=== PATIENT | male | born 1980 | race Caucasian/White ===

== ENCOUNTER 2017-08-11 20:52 | Emergency (ER) | payer SELFPAY ==
[2017-08-11 21:05] VITALS: TEMP 98.1
[2017-08-11] MEDS ORDERED: LORazepam 2 MG/ML INJ IM ONE (21:05)
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
[2017-08-11] MEDS ORDERED: HALOPERIDOL LACT 5 MG/ML INJ IM ONE (21:26)
[2017-08-11] MEDS ORDERED: LET GEL TOPICAL 1 EA SYR TP ONE (21:39)
[2017-08-11 23:55] VITALS: BP 109/86; PULSE 87; RESP 16; O2SAT 95
== END 2017-08-11 23:50 | disposition home or self-care (01) ==
PROC: 0HQ0XZZ Repair Scalp Skin, External Approach (ICD-10-PCS; principal; 2017-08-11)
PROC: 0HQ1XZZ Repair Face Skin, External Approach (ICD-10-PCS; principal; 2017-08-11)
DX: S02.2XXA Fracture of nasal bones, initial encounter for closed fracture (principal); S01.81XA Laceration without foreign body of other part of head, initial encounter; S01.01XA Laceration without foreign body of scalp, initial encounter; V18.0XXA Pedal cycle driver injured in noncollision transport accident in nontraffic accident, initial encounter; Y92.410 Unspecified street and highway as the place of occurrence of the external cause; Y99.8 Other external cause status; Y93.55 Activity, bike riding; Z23 Encounter for immunization
CPT/HCPCS: J2060

== ENCOUNTER 2017-09-03 21:25 | Emergency (ER) | payer SELFPAY ==
[2017-09-03 21:33] VITALS: TEMP 98.1
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
[2017-09-03 23:25] VITALS: BP 128/87; PULSE 75; RESP 18; O2SAT 97
== END 2017-09-03 23:25 | disposition home or self-care (01) ==
LOC: EDUNIT#
DX: S62.625A Displaced fracture of middle phalanx of left ring finger, initial encounter for closed fracture (principal); X58.XXXA Exposure to other specified factors, initial encounter

== ENCOUNTER 2018-01-14 14:59 | Inpatient (IN) | payer SELFPAY ==
[2018-01-14] MEDS ORDERED: NS 1,000 ML IV ONE (15:57)
[2018-01-14] MEDS ORDERED: KETOROLAC 30 MG/1 ML SDV IVP ONE (15:58)
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
[2018-01-14] MEDS ORDERED: AMOXICILLIN/CLAVULANATE POT 875/125 MG TAB PO ONE (16:04)
[2018-01-14 16:13] LABS: PLATELET COUNT 359 10^3/uL (150-400)
[2018-01-14] MEDS ORDERED: ONDANSETRON DISINTEGRATING 4 MG TAB PO PRN (17:03)
[2018-01-14] MEDS ORDERED: diphenhydrAMINE 25 MG CAP PO PRN (17:03)
[2018-01-14] MEDS ORDERED: ONDANSETRON 4 MG/2 ML VIAL IVP PRN (17:03)
[2018-01-14] MEDS ORDERED: PROMETHAZINE HCL 25 MG/ML INJ IVP PRN (17:03)
[2018-01-14] MEDS ORDERED: ACETAMINOPHEN 325 MG TAB PO PRN (17:03)
[2018-01-14] MEDS ORDERED: PROMETHAZINE HCL 25 MG TAB PO PRN (17:03)
[2018-01-14] MEDS ORDERED: NICOTINE POLACRILEX 2 MG GUM B PRN (17:03)
[2018-01-14] MEDS ORDERED: LR 1,000 ML IV SCH (17:30)
[2018-01-14] MEDS ORDERED: BENZONATATE 100 MG CAP PO PRN (17:37)
[2018-01-14] MEDS ORDERED: GUAIFENESIN/DM 10 ML UDCUP PO PRN (17:37)
[2018-01-14] MEDS ORDERED: IOPAMIDOL (ISOVUE-300) 100 ML BTL ONE (17:42)
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
[2018-01-14] MEDS: guaiFENesin 600 MG TAB.ER PO SCH (20:21)
[2018-01-14] MEDS: CETIRIZINE 10 MG TAB PO SCH (20:21)
[2018-01-14] MEDS: OSELTAMIVIR PHOSPHATE 75 MG CAP PO SCH (20:21)
[2018-01-14] MEDS: NICOTINE 21 MG/24 HR PATCH TD SCH (20:21)
[2018-01-14] MEDS: IBUPROFEN 200 MG TAB PO PRN (20:29)
[2018-01-14] MEDS: AZITHROMYCIN IV 500 MG in NS 250 ML IV SCH (20:48)
[2018-01-14] MEDS: IPRATROPIUM/ALBUTEROL 3 ML DEYVIAL IH SCH ×2 (21:15→21:16)
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
[2018-01-15 05:47] LABS: PLATELET COUNT 378 10^3/uL (150-400)
[2018-01-15] MEDS ORDERED: AMOXICILLIN/CLAVULANATE POT 875/125 MG TAB PO SCH (06:00)
[2018-01-15] MEDS: IPRATROPIUM/ALBUTEROL 3 ML DEYVIAL IH SCH ×4 (06:04→21:52)
[2018-01-15] MEDS ORDERED: cefTRIAXone 1 GM in STERILE WATER INJ 10 ML IV SCH (09:00)
[2018-01-15] MEDS: AZITHROMYCIN IV 500 MG in NS 250 ML IV SCH (09:14)
[2018-01-15] MEDS: guaiFENesin 600 MG TAB.ER PO SCH ×2 (09:18→20:25)
[2018-01-15] MEDS: OSELTAMIVIR PHOSPHATE 75 MG CAP PO SCH ×2 (09:18→17:41)
[2018-01-15] MEDS: NICOTINE 21 MG/24 HR PATCH TD SCH (09:21)
[2018-01-15] MEDS ORDERED: TUBERCULIN (PPD) 5 TU/0.1 ML SYRINGE ID ONE (09:45)
--- NOTE | 2018-01-15 09:52 | GCON ---
[f rep st] CONSULTATION INFECTIOUS DISEASE CONSULT DATE OF CONSULTATION: 01/15/2018 REQUESTING PHYSICIAN: Dr. Evin Burt. REASON FOR CONSULT: To assist in the management of this 37-year-old homeless man admitted for pneumonia, influenza A, and right otitis media. HISTORY OF PRESENT ILLNESS: The patient is a 37-year-old male whose previous medical history is notable for the followin. Homelessness for the past 9 months. 2. Tobacco use disorder. 3. Substance abuse with intravenous crystal methamphetamine. Please note, the patient was somewhat irritable this morning and did not want to provide a complete history for me. Insofar as his present issues are concerned, the patient tells me that he has been homeless for the past 9 months. He moved here several months ago from [place], [place]. He states that he worked on [employer] there, and then lost his job and became homeless. He has been sleeping out on the street, and occasionally in a parking structure when it is cold. He has not been at the [facility]. 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 He adamantly denies that. He states that he has been injecting crystal methamphetamine several times per day for the past couple of years and has never been in a rehabilitation program. He states that he gets clean needles from friends who have been at the [facility]. He has never been told he has hepatitis C. His last HIV test was 5 years ago when he was in care home. He states that last week he had fairly sudden onset of a cough, headache and body aches. He then developed discomfort in his right ear that became significant, so he presented to [facility] emergency department yesterday. In the emergency room, his white cell count was elevated at 11,000. He, however, was afebrile. Testing for influenza returned positive for influenza A. Chest x-ray revealed a lingular pneumonia, and for unclear reasons a CT chest was performed. Because of these test results, the patient was admitted to [facility] for further evaluation and treatment. He was started on Tamiflu, and ceftriaxone and azithromycin. He was also given 1 dose of Augmentin in the emergency room. I am now asked to assist in his management. I reviewed this with Dr. Frias this morning. The patient has an obvious lingular pneumonia, and patchy infiltrates throughout with slight nodular appearance. Because this was read as possibly representing underlying endocarditis or septic emboli, the patient is in the process of getting a transthoracic echocardiogram presently. He denies any history of endocarditis or endovascular disease. He denies any history of MRSA. He did not get a flu vaccine this year and does not recall ever having a pneumonia vaccine. He denies any recent travel other than to [place]. He does not have any pets. He has sex only with women. Please see discussion below. REVIEW OF SYSTEMS: Notable for some mild ear pain (better since admission), history of fever, chills, body aches, and cough productive of some yellow sputum. He denies diarrhea, rash, burning with urination or other. PREVIOUS MEDICAL HISTORY: As outlined below. ALLERGIES: No known drug allergies. MEDICATIONS: Prior to admission, none. SOCIAL HISTORY: The patient is originally from [place] and recently moved here because "I like [place]." He has a history of marijuana use and intravenous crystal methamphetamine use and denies needle sharing. He tells me regarding substances, "I have tried it all." No history of hepatitis C or tuberculosis. The patient spent time in care home in [place]. Has sex only with women as outlined above. He denies any history of sexually transmitted infections. Last HIV test was in care home, which was negative. His last TB test was at that time as well. FAMILY HISTORY: Mother is alive and well in [place]. He does not have contact with her. He has siblings with whom he is not in contact either. Review of systems as outline above. Otherwise, 10 systems are reviewed and are negative. PHYSICAL EXAM: VITAL SIGNS: T-current 36.5, T-max 36.8, heart rate 80, blood pressure 111/62, 95% on room air. GENERAL: Cachectic male, disheveled, somewhat irritable, nontoxic appearing. Coughing during my exam. HEENT: Atraumatic, normocephalic. Pupils equal, round, reactive to light. Extraocular movements are intact. No conjunctival injection, icterus, or petechiae. Mucous membranes are moist. Dentition in poor repair. No obvious thrush or oral lesions noted. Left tympanic membrane is normal. Right tympanic membrane is erythematous, but not beet-red. It is not bulging. There is no tongue tenderness. There is no evidence of tympanic membrane perforation. There are no vesicles. No anterior or posterior cervical adenopathy. NECK: Trachea is midline. No thyromegaly or palpable thyroid nodule. RESPIRATORY: No increased respiratory effort. Coarse breath sounds throughout with rhonchi. CARDIOVASCULAR: S1, S2. I cannot appreciate any rubs , gallops, or murmurs. ABDOMEN: Scaphoid, soft, no organomegaly or tenderness to palpation. EXTREMITIES: No clubbing, cyanosis, or edema. SKIN: Warm and dry. No stigmata of endocarditis. Old tattoos. His fingers are coated in dirt. No evidence of cutaneous abscesses. I cannot appreciate any track zambrano in his anterior cubital fossae, which is where the patient injects. NEUROLOGIC : He is alert and oriented x3. LABORATORY DATA: Microbiologic data: Blood cultures x2 are pending. Urine Legionella antigen is pending. White blood cell count of 8, down from 11. Hematocrit 42, platelet count of 378. BUN and creatinine 12/0.6. AST and ALT are within normal limits. Alkaline phosphatase normal. Albumin of 3. Influenza A swab positive. Urine tox screen positive for amphetamines and THC. Radiographic data as outlined above. IMPRESSION: 37-year-old homeless male with substance use disorder, homelessness and tobacco use disorder, admitted with influenza A and multifocal pneumonia. The patchy infiltrates could be secondary to an influenza pneumonia, or a secondary bacterial process. There are no cavitary lesions on CT scan; clinical suspicion for tuberculosis is low presently. PLAN: 1. Patient agrees to an HIV antibody test. 2. Obtain serologies for hepatitis A, B and C, and vaccinate for hepatitis A and B if not protected immunologically. 3. Blood cultures have been sent and are pending. 4. Agree with Tamiflu for treatment of influenza, and Ceftriaxone and Azithromycin for empiric treatment of multilobar bacterial pneumonia. MRSA pneumonia seems unlikely. 5. Urine Legionella antigen is pending. 6. A transthoracic echocardiogram has been ordered for completeness' sake given patchy infiltrates and concern for septic emboli. 7. Plant PPD, although as per above, clinical suspicion for tuberculosis is low and I do not feel he needs isolation at this point in time. 8. Will assess whether the patient has had a Tdap prior to discharge. He will also need Pneumovax. 9. Obtain sputum for Gram stain and culture. Thank you very much for consulting Infectious Diseases. Will continue to follow this patient with you. /[id number]/MODL MTDD
[2018-01-15] MEDS: cefTRIAXone 2 GM in STERILE WATER INJ 20 ML IV SCH (11:14)
--- NOTE | 2018-01-15 11:54 | ECHO ---
[email or web address] [address] [address] Main: [phone] Fax: Transthoracic Echocardiogram Name: JEREMY PISNAO MR#: [id number] Study Date: 01/15/2018 Study Time: 08:40 AM Date of : 1980 Age: 37 year(s) Height: 175.3 cm (69 in.) Weight: 61.24 kg (135 lb.) BSA: 1.75 m2 Gender: Male Examination: Echo Indication: eval for endocarditis; h/o IVDU Image Quality: Adequate Contrast: Requested by: Evin Burt BP: 111 mmHg/62 mmHg Heart Rate: 86 bpm Rhythm: Normal sinus rhythm Indication: eval for endocarditis; h/o IVDU Procedure Staff Contact Clerk: Tiffany Landry [facility] Reading Physician: Lukasz Oneill Requesting Provider: Conclusions: 1)Normal LV size and systolic function with a LVEF of 57% and normal wall motions. 2)Mild MR without MV prolapse. 3)Trivial TR noted. Unable to accurately assess PA pressures. 4)No vegetations on cardiac valves seen. 5)No pericardial effusion. Measurements: Chambers Valvular Assessment AV/MV Valvular Assessment TV/PV Normal Normal Normal Name Value Range Name Value Range Name Value Range Ao Dorys (MM): 3.0 cm (2.2 cm-3.7 AV Vmax: 1.10 m/s (1 m/s-1.7 PV Vmax: 0.80 m/s (0.6 m/s-0.9 cm) m/s) m/s) IVSd (2D): 0.8 cm (0.6 cm-1.1 AV maxP mmHg ( - ) PV PGmax: 3 mmHg ( - ) cm) LVOT Vmax: 0.82 m/s (0.7 m/s-1.1 LVDd (2D): 4.9 cm (4.2 cm-5.9 m/s) cm) MV E Vmax: 0.55 m/s ( - ) LVDs (2D): 3.2 cm (2.1 cm-4 MV A Vmax: 0.56 m/s ( - ) cm) MV E/A: 0.98 ( - ) LVPWd (2D): 0.9 cm (0.6 cm-1 cm) LVEF (BP): 57 % (>=55 %) RVDd(2D): 2.8 cm (1.9 cm-3.8 cmmm) Continued Measurements: Chambers Valvular Assessment AV/MV Name Value Name Value LADs Lon.2 cm MV DecTime: 113 m/s LA Area: 12.0 cm2 MV E/E' Septal: 8.00 Patient: JEREMY PISANO Study Date: 01/15/2018 Page 1 of 2 08:40 AM LA Volume: 27 ml MV E/E' Lateral: 4.50 LA Volume Index: 15.4 ml/m2 RA Area: 9.0 cm2 Findings: Left Ventricle: Normal size left ventricle. No LV hypertrophy. Normal global systolic LV function. EF is 57 %. No regional wall motion abnormality. Normal diastolic LV function. Right Ventricle: Normal size right ventricle. Normal RV function. Left Atrium: The left atrium is normal in size. Right Atrium: The right atrium is normal in size. Mitral Valve: The mitral valve is normal in appearance and function. There is mild thickening of the mitral valve leaflets. No mitral stenosis is present. Mild mitral valve regurgitation is present. There is no mitral valve vegetation. Aortic Valve: The aortic valve is normal in appearance and function. There is no aortic valve regurgitation. No aortic valve stenosis is present. There is no aortic valve vegetation. Tricuspid Valve: The tricuspid valve is normal in appearance and function. Trivial tricuspid valve regurgitation. No tricuspid valve vegetation. Pulmonic Valve: The pulmonic valve is normal in appearance and function. There is no pulmonic regurgitation seen. Aorta: The aorta is normal. Normal size aortic root measuring 3.0 cm. Pericardium: No pericardial effusion. (No Signature Object) Patient: JEREMY PISANO Study Date: 01/15/2018 Page 2 of 2 08:40 AM [id number]
--- NOTE | 2018-01-15 16:07 | HOSPPROG ---
Hospitalist Progress Note Assessment/Plan: #Multilobar PNA (personally reviewed CT scan) -appreciate ID consultation -Pending: Legionella, Strep, HIV, PPD, Hep serologies -IV CTX, Azithro -Echo with no vegetations #Influenza A: Tamiflu #Polysubstance abuse: meth, THC. Counseled on cessation #Nicotine abuse: yazmin patch #Homelessness: CM to assist once stable for DC #Mild leukocytosis: improve #right ear pain: no e/o acute OM #Diet: regular #DVT ppx: Lovenox #Disp: warrants inpt admission for acute PNA, requires IV abx Subjective: "feel so tired" Coughing up some sputum Objective: Vital Signs Temp Pulse Resp BP Pulse Ox 36.7 C 110 H 18 115/72 98 01/15/18 15:40 01/15/18 15:40 01/15/18 15:40 01/15/18 15:40 01/15/18 15:40 Laboratory Results 01/15/18 05:34 01/15/18 05:34 01/14/18 01/15/18 01/16/18 05:59 05:59 05:59 Intake Total 100 Output Total 100 Balance 0 - Physical Exam Constitutional: unkempt Eyes: other (no conjunctival hemorrhages) Ears, Nose, Mouth, Throat: dry mucous membranes Cardiovascular: regular rate and rhythym, no murmur, rub, or gallop Respiratory: rhonchi Genitourinary: no bladder fullness Skin: warm, other (tatooed) Musculoskeletal: full muscle strength Neurologic: AAOx3, CN II-XII Intact Psychiatric: flat affect ICD10 Worksheet Patient Problems: Problems Problem Status Onset Influenza A Acute Left lower lobe pneumonia Acute Otitis media Acute Laceration of right side of jaw Acute Laceration of scalp Acute Nasal bones, closed fracture Acute
--- NOTE | 2018-01-15 17:13 | ASMTCMCOM ---
CM Note CM Note Notes: Pt is homeless, here w/pneumonia, getting IV abx. Pt has a hx of drug use, will likely dc to community when medically stable, CM to speak w/pt about senior living bed. DC Plan: TBD Date Signed: 01/15/2018 05:13 PM Electronically Signed By:Renae Jacobo RN
[2018-01-15] MEDS: CETIRIZINE 10 MG TAB PO SCH (20:25)
[2018-01-15] MEDS: IBUPROFEN 200 MG TAB PO PRN (20:25)
[2018-01-16] MEDS: IPRATROPIUM/ALBUTEROL 3 ML DEYVIAL IH SCH ×4 (06:13→21:19)
[2018-01-16] MEDS: cefTRIAXone 2 GM in STERILE WATER INJ 20 ML IV SCH (07:55)
[2018-01-16] MEDS: AZITHROMYCIN IV 500 MG in NS 250 ML IV SCH (07:59)
[2018-01-16] MEDS: OSELTAMIVIR PHOSPHATE 75 MG CAP PO SCH ×2 (08:03→17:53)
[2018-01-16] MEDS: guaiFENesin 600 MG TAB.ER PO SCH ×2 (08:05→19:35)
[2018-01-16] MEDS: NICOTINE 21 MG/24 HR PATCH TD SCH (08:05)
[2018-01-16] MEDS ORDERED: PNEUMOCOCCAL 0.5ML VACCINE VIAL IM ONE ×2 (08:17→11:00)
--- NOTE | 2018-01-16 08:17 | PCMIDPN ---
Assessment/Plan: 1. Influenza a with possible superimposed bacterial multilobar pneumonia: Continue Tamiflu, ceftriaxone and azithromycin. When ready for discharge, can be transitioned to oral fluoroquinolone to complete 5 days of therapy. Echocardiogram negative. Clinical suspicion for septic emboli/endocarditis is low. 2. Vaccines: Patient states his last Tdap was within the past 10 years. Has never received Pneumovax. Will administer today. Subjective: Starting to feel better. Still coughing a fair amount. Objective: Tamiflu 75 mg twice a day day 2/5 Azithromycin 500 daily day 2 Ceftriaxone 2 g IV daily day 2 Afebrile 96% on room air Vital Signs Temp Pulse Resp BP Pulse Ox 36.6 C 93 18 103/70 96 01/16/18 07:46 01/16/18 07:46 01/16/18 07:46 01/16/18 07:46 01/16/18 07:46 Laboratory Results 01/15/18 05:34 01/15/18 16:39 01/15/18 01/16/18 01/17/18 05:59 05:59 05:59 Intake Total 100 Output Total 100 1300 Balance 0 -1300 Blood cultures negative Hepatitis serologies pending - Physical Exam General Appearance: no apparent distress, cachetic EENT: pharynx normal, No thrush Respiratory: other (Diminished breath sounds with crackles right base otherwise clear) Abdomen: non-tender, soft Skin: No rash ICD10 Worksheet Patient Problems: Problems Problem Status Onset Influenza A Acute Left lower lobe pneumonia Acute Otitis media Acute Laceration of right side of jaw Acute Laceration of scalp Acute Nasal bones, closed fracture Acute
--- NOTE | 2018-01-16 14:54 | HOSPPROG ---
Hospitalist Progress Note Assessment/Plan: #Multilobar PNA (personally reviewed CT scan) -appreciate ID consultation -Pending: Legionella, Strep, HIV, PPD, Hep serologies -IV CTX, Azithro -Echo with no vegetations #Influenza A: Tamiflu #Polysubstance abuse: meth, THC. Counseled on cessation #Nicotine abuse: yazmin patch #Homelessness: CM to assist once stable for DC #Mild leukocytosis: improve #right ear pain: no e/o acute OM #Diet: regular #DVT ppx: Lovenox #Disp: warrants inpt admission for acute PNA, requires IV abx Subjective: less cough. still tired. Eating ok without N/V Objective: Vital Signs Temp Pulse Resp BP Pulse Ox 36.1 C 96 14 131/67 H 92 01/16/18 10:59 01/16/18 10:59 01/16/18 10:59 01/16/18 10:59 01/16/18 10:59 Laboratory Results 01/15/18 05:34 01/15/18 16:39 01/15/18 01/16/18 01/17/18 05:59 05:59 05:59 Intake Total 100 Output Total 100 1300 Balance 0 -1300 - Physical Exam Constitutional: no apparent distress, unkempt Eyes: PERRL Ears, Nose, Mouth, Throat: dry mucous membranes Cardiovascular: regular rate and rhythym Respiratory: rhonchi Gastrointestinal: normoactive bowel sounds, soft, non-tender abdomen Genitourinary: no bladder fullness Skin: warm Musculoskeletal: full muscle strength Neurologic: AAOx3, CN II-XII Intact Psychiatric: interacting appropriately, flat affect ICD10 Worksheet Patient Problems: Problems Problem Status Onset Influenza A Acute Left lower lobe pneumonia Acute Otitis media Acute Laceration of right side of jaw Acute Laceration of scalp Acute Nasal bones, closed fracture Acute
[2018-01-16] MEDS: CETIRIZINE 10 MG TAB PO SCH (19:35)
[2018-01-17 02:49] LABS: HEPATITIS B SURFACE ANTIGEN NEGATIVE (NEGATIVE)
[2018-01-17 02:55] LABS: HEPATITIS B CORE AB IGM NEGATIVE (NEGATIVE)
[2018-01-17 03:07] LABS: HEPATITIS A ANTIBODY TOTAL POSITIVE (NEGATIVE); HEPATITIS B CORE AB TOTAL NEGATIVE (NEGATIVE); HEPATITIS C ANTIBODY TOTAL NEGATIVE (NEGATIVE); HIV TYPE 1 AND 2 NEGATIVE (NEGATIVE)
[2018-01-17 03:51] LABS: HEPATITIS A ANTIBODY IGM (BCH) NEGATIVE (NEGATIVE)
[2018-01-17] MEDS: IPRATROPIUM/ALBUTEROL 3 ML DEYVIAL IH SCH ×4 (05:59→20:23)
--- NOTE | 2018-01-17 08:30 | HOSPPROG ---
Hospitalist Progress Note Assessment/Plan: #Multilobar PNA (personally reviewed CT scan) -symptoms improved. Appreciate ID consultation -Pending: Legionella, Strep, HIV, PPD, Hep serologies -Echo with no vegetations -change to PO LQ for total 7 days abx #Influenza A: Tamiflu #Polysubstance abuse: meth, THC. Counseled on cessation #Nicotine abuse: yazmin patch #Homelessness: CM to assist once stable for DC #Mild leukocytosis: resolved #right ear pain: no e/o acute OM #Diet: regular #DVT ppx: Lovenox #Disp: warrants inpt admission for acute PNA. Plan to DC in next 1-2 days Subjective: minimal cough Objective: Vital Signs Temp Pulse Resp BP Pulse Ox 36.9 C 96 18 112/82 H 93 01/17/18 04:00 01/17/18 04:00 01/17/18 04:00 01/17/18 04:00 01/17/18 04:00 Laboratory Results 01/15/18 05:34 01/17/18 05:05 01/16/18 01/17/18 01/18/18 05:59 05:59 05:59 Intake Total 200 Output Total 1300 Balance -1300 200 - Physical Exam Constitutional: no apparent distress, unkempt Eyes: PERRL Ears, Nose, Mouth, Throat: moist mucous membranes Cardiovascular: regular rate and rhythym Respiratory: no respiratory distress (min rhonchi) Gastrointestinal: normoactive bowel sounds, soft, non-tender abdomen Genitourinary: no bladder fullness Skin: warm Musculoskeletal: full muscle strength Neurologic: AAOx3, CN II-XII Intact Psychiatric: interacting appropriately ICD10 Worksheet Patient Problems: Problems Problem Status Onset Influenza A Acute Left lower lobe pneumonia Acute Otitis media Acute Laceration of right side of jaw Acute Laceration of scalp Acute Nasal bones, closed fracture Acute
[2018-01-17] MEDS: guaiFENesin 600 MG TAB.ER PO SCH ×2 (09:29→20:35)
[2018-01-17] MEDS: NICOTINE 21 MG/24 HR PATCH TD SCH (09:29)
[2018-01-17] MEDS: OSELTAMIVIR PHOSPHATE 75 MG CAP PO SCH ×2 (09:29→17:25)
[2018-01-17] MEDS ORDERED: NS 1,000 ML IV SCH (09:30)
[2018-01-17] MEDS: AZITHROMYCIN IV 500 MG in NS 250 ML IV SCH (10:38)
[2018-01-17] MEDS: cefTRIAXone 2 GM in STERILE WATER INJ 20 ML IV SCH (10:39)
--- NOTE | 2018-01-17 16:31 | ASMTCMCOM ---
CM Note CM Note Notes: Chart reviewed. Attempted to meet with patient to assess his knowledge of available resources but he is asleep, Per his RN, he will not use services at the intermediate,likely to dc independently to the street. CM to follow. Plan: Independent Date Signed: 01/17/2018 04:31 PM Electronically Signed By:STANLEY Hooper
[2018-01-17] MEDS: CETIRIZINE 10 MG TAB PO SCH (20:39)
[2018-01-18] MEDS: IPRATROPIUM/ALBUTEROL 3 ML DEYVIAL IH SCH ×3 (05:41→16:20)
[2018-01-18] MEDS: guaiFENesin 600 MG TAB.ER PO SCH ×2 (08:51→21:16)
[2018-01-18] MEDS: OSELTAMIVIR PHOSPHATE 75 MG CAP PO SCH ×2 (08:52→18:24)
[2018-01-18] MEDS: NICOTINE 21 MG/24 HR PATCH TD SCH (08:53)
--- NOTE | 2018-01-18 13:37 | HOSPPROG ---
Hospitalist Progress Note Assessment/Plan: #Tachycardia: suspect deconditioning vs dehydration. No chest pain. Denies Etoh abuse and outside the window for w/d #Multilobar PNA (personally reviewed CT scan) -symptoms improved. Appreciate ID consultation -negative Strep, Legionella -Echo with no vegetations -change to PO LQ for total 7 days (Day 04/04) #Influenza A: Tamiflu to be done 01/19 #Polysubstance abuse: meth, THC. Counseled on cessation #Nicotine abuse: yazmin patch #Homelessness: CM to assist once stable for DC #Mild leukocytosis: resolved #right ear pain: no e/o acute OM #Diet: regular #DVT ppx: Lovenox #Disp: warrants inpt admission for acute PNA, IVfs. If tachycardia resolved, DC tomorrow to [facility] Subjective: feels much better. No SOB or chest pain Objective: Vital Signs Temp Pulse Resp BP Pulse Ox 36.4 C 120 H 16 115/83 H 98 01/18/18 08:00 01/18/18 11:38 01/18/18 08:00 01/18/18 08:00 01/18/18 11:38 Laboratory Results 01/15/18 05:34 01/17/18 05:05 01/17/18 01/18/18 01/19/18 05:59 05:59 05:59 Intake Total 200 4422 Output Total 3300 600 Balance 200 1122 -600 - Physical Exam Constitutional: other (appears much brighter, more color) Eyes: PERRL Ears, Nose, Mouth, Throat: moist mucous membranes Cardiovascular: regular rate and rhythym Respiratory: no respiratory distress, reduced air movement Gastrointestinal: normoactive bowel sounds, soft, non-tender abdomen Genitourinary: No ibanez in urethra Skin: warm Musculoskeletal: full muscle strength Neurologic: AAOx3 Psychiatric: interacting appropriately ICD10 Worksheet Patient Problems: Problems Problem Status Onset Influenza A Acute Left lower lobe pneumonia Acute Otitis media Acute Laceration of right side of jaw Acute Laceration of scalp Acute Nasal bones, closed fracture Acute
[2018-01-18] MEDS ORDERED: NS 1,000 ML IV SCH (13:45)
--- NOTE | 2018-01-18 14:46 | ASMTCMCOM ---
CM Note CM Note Notes: CM spoke w/ DONOVAN Akins regarding d/c POC. CM met w/ pt for dispo planning. Pt is requesting pants, long sleeve shirt and t shirt. CM provided pt w/ clothing donation from the case management office. CM provided pt w/ etoh and substance relapse prevention resources. Pt reports that the reason why he uses is because it keeps him warm when he is out in the elements. Pt would like CM to reserve long-term bed tomorrow AM. CM to follow. Plan: Independent Date Signed: 01/18/2018 02:46 PM Electronically Signed By:STANLEY Hooper
[2018-01-18] MEDS ORDERED: TUBERCULIN (PPD) 5 TU/0.1 ML SYRINGE ID ONE (15:46)
[2018-01-18] MEDS ORDERED: IPRATROPIUM/ALBUTEROL 3 ML DEYVIAL IH PRN (20:33)
[2018-01-18] MEDS: CETIRIZINE 10 MG TAB PO SCH (21:16)
[2018-01-19 08:17] VITALS: BP 94/63; PULSE 116; RESP 16; TEMP 99.3; O2SAT 93
[2018-01-19] MEDS: NICOTINE 21 MG/24 HR PATCH TD SCH (09:27)
[2018-01-19] MEDS: guaiFENesin 600 MG TAB.ER PO SCH (09:28)
[2018-01-19] MEDS: OSELTAMIVIR PHOSPHATE 75 MG CAP PO SCH (09:28)
--- NOTE | 2018-01-19 17:46 | GDS ---
[f rep st] DISCHARGE SUMMARY DISCHARGE DIAGNOSES: 1. Multi-lobar pneumonia. 2. Influenza A. 3. Polysubstance abuse including methamphetamine and marijuana. 4. Nicotine abuse. 5. Homelessness. CONSULTANTS: Kayla Ward MD, infectious Disease. HISTORY OF DETAILS: Please see the history and physical dated January 14, 2018. In brief, the ruthie ent is a 37-year-old male with a history of homelessness and polysubstance abuse, presents to the [facility] department with cough and malaise. Workup revealed influenza A and multifocal pneumonia. He w as admitted to the hospital for management. HOSPITAL COURSE: The patient was admitted to the Medical/Surgical unit. He was treated with 1 week of Levaquin for his pneumonia. Urinary Legionella and pneumococcal antigens were negative. He recei isabell a course of Tamiflu for influenza A as well as supportive care. On the day of discharge, he is s aturating 94% on room air. His elevated white blood cell count normalized. His blood cultures are n egative. He also had a negative D-dimer, which was checked due to his intermittent tachycardia. He denies using methamphetamine during the hospitalization, though he did have positive amphetamines on his drug screen. He was also screened for HIV and hepatitis C, which were both negative. DISPOSITION: Patient is discharged to the homeless nursing home in stable condition. FOLLOWUP: The patient will follow up with the [facility]. /[id number]/MODL
== END 2018-01-19 11:20 | disposition home or self-care (01) | DRG 195 ==
LOC: F3E 18:22 → OBSVTOIN 19:21
PROVIDERS: ADMIT Internal Medicine; ATTEND Hospitalist
DX: J18.1 Lobar pneumonia, unspecified organism (principal); J11.1 Influenza due to unidentified influenza virus with other respiratory manifestations; H66.91 Otitis media, unspecified, right ear; F15.10 Other stimulant abuse, uncomplicated; F12.10 Cannabis abuse, uncomplicated; F17.210 Nicotine dependence, cigarettes, uncomplicated; S62.92XD Unspecified fracture of left hand, subsequent encounter for fracture with routine healing; Y09 Assault by unspecified means; Z59.0 Homelessness; Z23 Encounter for immunization
CPT/HCPCS: 80307; 86704-90; 86705-90; 86708-90; 86709-90; 87449-90; 96374; 97116-GP; 97161-GP; G0009; G0472; G0480; J0456; J0696; J1885; Q9967

== ENCOUNTER 2018-09-20 19:02 | Emergency (ER) | payer MEDICAID ==
[2018-09-20] MEDS ORDERED: NS 1,000 ML IV ONE (20:26)
[2018-09-20] MEDS ORDERED: KETOROLAC 30 MG/1 ML SDV IVP ONE (20:27)
--- NOTE | 2018-09-20 20:29 | EDPHY ---
H & P Stated Complaint: fall with laceation, syncope Time Seen by Provider: 09/20/18 20:08 HPI/ROS: CHIEF COMPLAINT: Facial laceration, syncope HISTORY OF PRESENT ILLNESS: The patient is a 38-year-old homeless man who states that he was walking across the parking lot to go to the bathroom after eating [place] food when he suddenly fainted. He landed on his face and has a laceration to his chin, lip and lost a tooth. He also states that he has dropped pain. He denies other injuries. He is not sure why he fainted. He denies chest pain or shortness of breath. No reports of seizure activity. States that he is tachycardic at baseline. He denies recent drug or alcohol use. He does not think is withdrawing. Severity: Moderate Modifying factors: None REVIEW OF SYSTEMS: Constitutional: denies: chills, fever, recent illness, recent injury EENTM: denies: blurred vision, double vision, nose congestion Respiratory: denies: cough, shortness of breath Cardiac: denies: chest pain, irregular heart rate, lightheadedness, palpitations Gastrointestinal/Abdominal: denies: abdominal pain, diarrhea, nausea, vomiting, blood streaked stools Genitourinary: denies: dysuria, frequency, hematuria, pain Musculoskeletal: denies: joint pain, muscle pain Skin: denies: lesions, rash, jaundice, bruising Neurological: denies: headache, numbness, paresthesia, tingling, dizziness, weakness Hematologic/Lymphatic: denies: blood clots, easy bleeding, easy bruising Immunologic/allergic: denies: HIV/AIDS, transplant 10 systems reviewed and negative except as noted EXAM: GENERAL: Disheveled HEAD: Atraumatic, normocephalic. EYES: Pupils equal round and reactive to light, extraocular movements intact, sclera anicteric, conjunctiva are normal. ENT: TMs normal, nares patent, see HPI NECK: Normal range of motion, supple without lymphadenopathy or JVD. LUNGS: Breath sounds clear to auscultation bilaterally and equal. No wheezes rales or rhonchi. HEART: Regular rate and rhythm without murmurs, rubs or gallops. ABDOMEN: Soft, nontender, normoactive bowel sounds. No guarding, no rebound. No masses appreciated. BACK: No CVA tenderness, no spinal tenderness, step-offs or deformities EXTREMITIES: Normal range of motion, no pitting or edema. No clubbing or cyanosis. NEUROLOGICAL: Cranial nerves II through XII grossly intact. Normal speech, normal gait. 5/5 strength, normal movement in all extremities, normal sensation , normal reflexes PSYCH: Normal mood, normal affect. SKIN: Warm, dry, normal turgor, no visible rashes or lesions. Source: Patient Exam Limitations: No limitations - Personal History Current Tetanus/Diphtheria Vaccine: Yes Current Tetanus Diphtheria and Acellular Pertussis (TDAP): Yes - Medical/Surgical History Hx Asthma: No Hx Chronic Respiratory Disease: No Hx Diabetes: No Hx Cardiac Disease: No Hx Renal Disease: No Hx Cirrhosis: No Hx Alcoholism: No Hx HIV/AIDS: No Hx Splenectomy or Spleen Trauma: No Other PMH: denies - Social History Smoking Status: Current every day smoker Constitutional: Initial Vital Signs Temperature (C) 36.8 C 09/20/18 19:05 Heart Rate 102 H 09/20/18 19:05 Respiratory Rate 18 09/20/18 19:05 Blood Pressure 135/98 H 09/20/18 19:05 O2 Sat (%) 96 09/20/18 19:05 O2 Delivery Mode Room Air Allergies/Adverse Reactions: No Known Allergies Allergy (Unverified 09/20/18 19:08) Home Medications: Medication Instructions Recorded NK [No Known Home Meds] 01/19/18 ED Images - Head Mouth: 1 - Tooth 7. Avulsed and missing Mouth Nose: 1 - 2 cm lip laceration, does not cross the vermilion border. Not through and through. Chin: 1 - Horseshoe shaped 3 cm laceration, Medical Decision Making - Diagnostics EKG Interpretation: An EKG obtained and was read and documented in trace view. Please see trace view for full reading and report. Sinus tachycardia Imaging Results: Imaging Impressions Face CT 09/20/18 20:26 Impression: Head CT within normal limits. 2. CT of the Facial Bones, 8:42 PM Indication: Trauma. Fall. Facial laceration. Technique: 0.625 mm thick collimated slices were obtained through the face from just below the mandible to above the frontal sinuses. The data was reconstructed in the sagittal and coronal planes. Dose reduction techniques were utilized. Findings: There is a small acute chip off the anterior paramedian maxilla, adjacent to the anterior root of the right central incisor (#8). This cortex is extremely thin. The tooth adjacent to this (lateral incisor #7) is absent. The inferior nasal spine and anterior maxillary dahl are intact. No acute nasal bone fracture is identified. 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 There is a small mucous retention cyst involving the medial wall of the right maxillary sinus. No mandibular fracture is identified. There is a small amount of radiopaque foreign material in the lower lip and there is a laceration of the upper lip. Impression: Anterior maxillary fracture involving tooth #8. Tooth #7 is absent. There is radiopaque foreign material in the lower lip. There is a laceration of the upper lip. Results discussed with Dr. Person at 9:30 PM. General information for patients regarding this examination can be found at [email or web address]. If you have questions or comments about this report, please contact me at [phone](hospital) or [phone] (cell). Head CT 09/20/18 20:26 Impression: Head CT within normal limits. 2. CT of the Facial Bones, 8:42 PM Indication: Trauma. Fall. Facial laceration. Technique: 0.625 mm thick collimated slices were obtained through the face from just below the mandible to above the frontal sinuses. The data was reconstructed in the sagittal and coronal planes. Dose reduction techniques were utilized. Findings: There is a small acute chip off the anterior paramedian maxilla, adjacent to the anterior root of the right central incisor (#8). This cortex is extremely thin. The tooth adjacent to this (lateral incisor #7) is absent. The inferior nasal spine and anterior maxillary dahl are intact. No acute nasal bone fracture is identified. 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 There is a small mucous retention cyst involving the medial wall of the right maxillary sinus. No mandibular fracture is identified. There is a small amount of radiopaque foreign material in the lower lip and there is a laceration of the upper lip. Impression: Anterior maxillary fracture involving tooth #8. Tooth #7 is absent. There is radiopaque foreign material in the lower lip. There is a laceration of the upper lip. Results discussed with Dr. Person at 9:30 PM. General information for patients regarding this examination can be found at [email or web address]. If you have questions or comments about this report, please contact me at (hospital) or [phone] (cell). Imaging: Discussed imaging studies w/ fisher scallop Radiologist Procedures: Procedure: Laceration repair. Verbal consent was obtained from the patient. The 3 cm chin laceration was anesthetized with 1% lidocaine with epi and bicarbonate locally infiltrated. The wound was irrigated copiously according to protocol, draped and explored to its base. It was approximately 1 cm deep. There were no deep structures involved. No tendon, nerve, or vascular injury was identified when explored through full range of motion. No foreign body was identified. The wound was repaired with 6.0 Prolene, 6 sutures, interrupted. The wound repair was complex with multiple flap alignment. The procedure was performed by myself. A dressing was then placed with sterile gauze and bacitracin. Procedure: Laceration repair. Verbal consent was obtained from the patient. The 2 cm lip laceration was anesthetized with 1% lidocaine with epi and bicarbonate locally infiltrated. The wound was irrigated copiously according to protocol, draped and explored to its base. It was approximately 1/2 cm deep. There were no deep structures involved. No tendon, nerve, or vascular injury was identified when explored through full range of motion. No foreign body was identified after irrigation. The wound was repaired with 2 sutures, chromic gut, interrupted. The wound repair was simple without wound margin revisement or multiple flap alignment. The procedure was performed by myself. A dressing was then placed with sterile gauze. ED Course/Re-evaluation: We discussed the patient's facial fractures. He tolerated suture repair. We discussed suture care and removal. Patient understands. He will be on a soft diet. He declines further workup or testing. I have paged oral surgery for follow-up. Differential Diagnosis: Partial list of the Differential diagnosis considered include but were not limited to; mandible fracture, facial fracture, dental fracture, dental displacement, laceration, syncope and although unlikely based on the history and physical exam, I also considered seizure, head injury, infection, cardiac disease. I discussed these differential diagnoses and the plan with the patient as well as the usual and expected course. The patient understands that the diagnosis is provisional and that in medicine we are not always correct and that further workup is often warranted. Usual and customary warnings were given. All of the patient's questions were answered. The patient was instructed to return to the emergency department should the symptoms at all worsen or return, otherwise to followup with the physician as we discussed. - Data Points Laboratory Results: Laboratory Results 09/20/18 20:40 09/20/18 20:40 09/20/18 09/20/18 20:40 20:40 WBC 17.43 10^3/uL H 10^3/uL (3.80-9.50) RBC 5.63 10^6/uL 10^6/uL (4.40-6.38) Hgb 16.7 g/dL g/dL (13.7-17.5) Hct 50.0 % % (40.0-51.0) MCV 88.8 fL fL (81.5-99.8) MCH 29.7 pg pg (27.9-34.1) MCHC 33.4 g/dL g/dL (32.4-36.7) RDW 13.6 % % (11.5-15.2) Plt Count 506 10^3/uL H 10^3/uL (150-400) MPV 9.4 fL fL (8.7-11.7) Neut % (Auto) 81.1 % H % (39.3-74.2) Lymph % (Auto) 13.1 % L % (15.0-45.0) [place] % (Auto) 4.8 % % (4.5-13.0) Eos % (Auto) 0.2 % L % (0.6-7.6) Baso % (Auto) 0.3 % % (0.3-1.7) Nucleat RBC Rel Count 0.0 % % (0.0-0.2) Absolute Neuts (auto) 14.12 10^3/uL H 10^3/uL (1.70-6.50) Absolute Lymphs (auto) 2.29 10^3/uL 10^3/uL (1.00-3.00) Absolute Monos (auto) 0.84 10^3/uL H 10^3/uL (0.30-0.80) Absolute Eos (auto) 0.04 10^3/uL 10^3/uL (0.03-0.40) Absolute Basos (auto) 0.06 10^3/uL 10^3/uL (0.02-0.10) Absolute Nucleated RBC 0.00 10^3/uL 10^3/uL (0-0.01) Immature Gran % 0.5 % % (0.0-1.1) Immature Gran # 0.08 10^3/uL 10^3/uL (0.00-0.10) Sodium 135 mEq/L mEq/L (135-145) Potassium 4.3 mEq/L mEq/L (3.3-5.0) Chloride 101 mEq/L mEq/L (97-110) Carbon Dioxide 20 mEq/l L mEq/l (22-31) Anion Gap 14 mEq/L mEq/L (6-14) BUN 20 mg/dL mg/dL (7-23) Creatinine 1.4 mg/dL H mg/dL (0.7-1.3) Estimated GFR 57 Glucose 123 mg/dL H mg/dL (70-100) Calcium 9.8 mg/dL mg/dL (8.5-10.4) Ethyl Alcohol 98 mg/dL H mg/dL (0-10) Medications Given: Discontinued Medications Sodium Chloride (Ns) 1,000 mls @ 0 mls/hr IV ONCE ONE; Wide Open PRN Reason: Protocol Stop: 09/20/18 20:27 Last Admin: 09/20/18 20:39 Dose: 1,000 mls Ketorolac Tromethamine (Toradol) 15 mg IVP EDNOW ONE Stop: 09/20/18 20:28 Last Admin: 09/20/18 20:39 Dose: 15 mg Departure - Departure Disposition: Home, Routine, Self-Care Clinical Impression: Laceration of skin of chin Qualifiers: Encounter type: initial encounter Qualified Code(s): S01.81XA - Laceration without foreign body of other part of head, initial encounter Lip laceration Qualifiers: Encounter type: initial encounter Qualified Code(s): S01.511A - Laceration without foreign body of lip, initial encounter Dental trauma Qualifiers: Encounter type: initial encounter Qualified Code(s): S09.93XA - Unspecified injury of face, initial encounter Maxillary fracture Qualifiers: Encounter type: initial encounter Fracture type: closed Laterality: unspecified laterality Qualified Code(s): S02.401A - Maxillary fracture, unspecified side, initial encounter for closed fracture Condition: Fair Instructions: Facial Fracture (ED), Soft Diet (ED), Acute Dental Trauma (ED) Additional Instructions: Have your stitches removed in 10 days. The stitches in your lipid will dissolve. Referrals: NONE *PRIMARY CARE P,. [Primary Care Provider] - As per Instructions Flaquita Salas DDS [Doctor of Dental Surgery] - 2-3 days without fail
--- NOTE | 2018-09-20 20:47 | CPEKG ---
Test Reason : OPEN Blood Pressure : / mmHG Vent. Rate : 107 BPM Atrial Rate : 109 BPM P-R Int : 128 ms QRS Dur : 084 ms QT Int : 331 ms P-R-T Axes : 070 091 065 degrees QTc Int : 442 ms Sinus tachycardia Atrial premature complex Borderline right axis deviation Confirmed by Andrea Person ([id number]) on 09/20/2018 8:47:01 PM Referred By: Confirmed By:Andrea Person
[2018-09-20 20:52] LABS: PLATELET COUNT 506 10^3/uL (150-400)
[2018-09-20 22:00] VITALS: BP 99/60
== END 2018-09-20 21:58 | disposition home or self-care (01) ==
DX: S01.81XA Laceration without foreign body of other part of head, initial encounter (principal); S01.511A Laceration without foreign body of lip, initial encounter; S00.551A Superficial foreign body of lip, initial encounter; S02.40CA Maxillary fracture, right side, initial encounter for closed fracture; S02.5XXB Fracture of tooth (traumatic), initial encounter for open fracture; E86.9 Volume depletion, unspecified; W01.198A Fall on same level from slipping, tripping and stumbling with subsequent striking against other object, initial encounter; Y92.481 Parking lot as the place of occurrence of the external cause; Z59.0 Homelessness; F17.200 Nicotine dependence, unspecified, uncomplicated
CPT/HCPCS: 96374; G0480; J1885